=== PATIENT | male | born 1970 | race Caucasian/White ===

== ENCOUNTER 2016-09-17 09:42 | Emergency (ER) | payer OTHER ==
[~2016-09-17] VITALS: Ht 185.4 cm; Wt 105.2 kg
[2016-09-17 10:25] LABS: ABSOLUTE BASOPHIL COUNT 0 /CUMM (0.0-0.2); ABSOLUTE EOSINOPHIL COUNT 0.1 /CUMM (0.0-0.7); ABSOLUTE GRANULOCYTE CT 3.3 /CUMM (1.4-6.5); ABSOLUTE MONOCYTE COUNT 0.3 /CUMM (0.10-0.60); BASOPHIL % 0.3 % (0.0-2.0); EOSINOPHIL % 1.4 % (0-5); HEMATOCRIT 43.8 % (42-52); MEAN CORPUSCULAR HGB 28.8 PG (27.0-31.0); MEAN CORPUSCULAR HGB CONC 34.4 G/DL (33.0-37.0); MEAN CORPUSCULAR VOLUME 83.6 FL (80.0-94.0); MEAN PLATELET VOLUME 8.6 FL (7.4-10.4); PLATELET COUNT 278 /CUMM (130-400); RBC DISTRIBUTION WIDTH 12.6 % (11.5-14.5); RED BLOOD CELL CT 5.24 /CUMM (4.70-6.10); WHITE BLOOD CELL COUNT 4.8 /CUMM (4.8-10.8)
--- NOTE | 2016-09-17 10:53 | ED CARDIAC/CP/PALPITATIONS ---
History of Present Illness General Chief Complaint: Chest Pain Stated Complaint: CHEST PAIN Source: patient Exam Limitations: no limitations Vital Signs & Intake/Output Vital Signs & Intake/Output ED Intake and Output 09/18 0000 09/17 1200 Intake Total Output Total Balance Patient 232 lb Weight Allergies Coded Allergies: No Known Drug Allergies (09/17/16) Uncoded Allergies: SEASONAL (12/18/12) Reconcile Medications No Known Home Medications Triage Note: C/O DULL CHEST PAIN X 2 DAYS WITH R SIDED FACIAL AND ARM NUMBNESS, SOB AND BLURRED VISION IN R EYE. SAW PMD DR. JUÁREZ LAST WEEK, HAS ECHCARDIOGRAM SCHEUDLED TODAY AT DR. VELAZCO'S OFFICE. EKG DONE ON ARRIVAL. Triage Nurses Notes Reviewed? yes Onset: Gradual Duration: week(s): (1) Timing: multiple episodes today Quality/Severity: mild Location: under left nipple Radiation: no radiation Activities at Onset: none HPI: 45 year old male with history of valvular disorder presents to [facility] ER with on/ off chest pain for the past week. Pain is burning in nature just under left nipple, no radiation of the pain. No exacerbating or relieving factors. In July he was evaluated by an urgent care for similar symptoms. Today he also complains of change in sensation to the right side of his face and his right arm. No headache. Questionable change in vision in right eye. No loss of strength. No difficulty with speech, swallowing, walking or comprehension. Denies any radiating or neck pain. Today he is due to have his repeat echocardiogram at Dr. Velazco's office at 3:30 pm. Past History Travel History Traveled to [place] past 21 day No Medical History Any Pertinent Medical History? see below for history Cardiovascular: murmur and valve prolapse Surgical History Surgical History: non-contributory Psychosocial History What is your primary language Ukrainian Tobacco Use: Never used ETOH Use: denies use Family History Hx Contributory? No Review of Systems Review of Systems Constitutional: Denies: chills, fever. EENTM: Reports: visual changes. Denies: blurred vision, double vision, eye pain, ear discharge, ear redness. Respiratory: Denies: cough, short of breath, sputum production. Cardiovascular: Reports: edema. Denies: palpitations, peripheral edema, syncope. GI: Denies: abdominal pain. Genitourinary: Reports: no symptoms. Musculoskeletal: Denies: back pain. Skin: Reports: no symptoms. Neurological/Psychological: Reports: numbness. Denies: ataxia, headache. Hematologic/Endocrine: Denies: bruising, bleeding. Immunologic/Allergic: Denies: splenectomy. All Other Systems: Reviewed and Negative Physical Exam Physical Exam General Appearance: well developed/nourished, alert, awake Head: atraumatic, normal appearance Eyes: Bilateral: normal appearance, PERRL, EOMI. Ears, Nose, Throat: normal pharynx, normal ENT inspection, hearing grossly normal Neck: normal inspection, supple, full range of motion Respiratory: normal breath sounds, chest non-tender, no respiratory distress Cardiovascular: regular rate/rhythm, systolic murmur Peripheral Pulses: 2+ radial (R), 2+ radial (L) Gastrointestinal: normal bowel sounds, soft, non-tender Back: normal inspection, normal range of motion Extremities: normal inspection, normal capillary refill, normal range of motion, no edema Neurologic/Psych: no motor/sensory deficits, awake, alert, oriented x 3 Skin: intact, normal color, warm/dry Core Measures ACS in differential dx? Yes ASA ordered for poss ACS? No-ACS ruled out Severe Sepsis Present: No Septic Shock Present: No Progress Differential Diagnosis: AMI, aortic dissection, musculoskeletal pain, myocarditis, pericarditis, pneumonia, pneumothorax, pulmonary embolism, PUD/GERD , unstable angina, CVA/TIA, SEIZURE Plan of Care: Orders Procedure Date/time Status TROPONIN LEVEL 09/17 1002 Complete MAGNESIUM 09/17 1002 Complete COMPREHENSIVE METABOLIC PANEL 09/17 1002 Complete CBC WITHOUT DIFFERENTIAL 09/17 1002 Complete EKG 09/17 0944 Active Laboratory Tests 09/17/16 1004: Anion Gap 10, Estimated GFR > 60, BUN/Creatinine Ratio 15.0, Glucose 95, Calcium 9.3, Magnesium 1.9, Total Bilirubin 0.8, AST 24, ALT 44, Alkaline Phosphatase 70 , Troponin I < 0.01, Total Protein 6.7, Albumin 4.1, Globulin 2.6, Albumin/ Globulin Ratio 1.6, CBC w Diff NO MAN DIFF REQ, RBC 5.24, MCV 83.6, MCH 28.8, RDW 12.6, MPV 8.6, Gran % 70.0, Lymphocytes % 21.3, Monocytes % 7.0, Eosinophils % 1.4, Basophils % 0.3, Absolute Granulocytes 3.3, Absolute Lymphocytes 1.0 L, Absolute Monocytes 0.3, Absolute Eosinophils 0.1, Absolute Basophils 0, PUBS MCHC 34.4 09/17/2016 12:13:23 PM Case discussed with Dr. Brayan Parikh. He will follow up this afternoon for his echocardiogram. Imaging and blood tests are negative. Patient will discuss symptoms and concerns with the manager production's afternoon. (CASSI COATES,DAVID) Diagnostic Imaging: Viewed by Me: CT Scan. Discussed w/RAD: CT Scan. Radiology Impression: PATIENT: SERVANDO VERGARA PRESENT AGE: 45 PATIENT ACCOUNT NO: [id number] : 71 LOCATION: [facility] ORDERING PHYSICIAN: DAVID YE MD SERVICE DATE: 09/17/16 EXAM TYPE: CAT - CT HEAD WO IV CONTRAST EXAMINATION: CT HEAD WITHOUT CONTRAST CLINICAL INFORMATION: Right-sided facial and arm numbness. Blurred vision. COMPARISON: None TECHNIQUE: Contiguous axial imaging was performed from the skull base to vertex without intravenous administration of contrast. DLP: 601 mGy-cm FINDINGS: There is no evidence of acute intracranial hemorrhage or territorial infarction. No abnormal mass effect or midline shift is seen. Jose to white matter differentiation is well preserved. No extra-axial fluid collections are identified. The ventricles are normal in size. There is no abnormal attenuation within the brain parenchyma. No acute osseous abnormalities. The mastoid air cells and middle ear cavities are clear. The left temporomandibular joint is normal. The right condylar head is patulous and deformed, compatible with the sequela of remote injury. There is a small retention cysts in the anterior left sphenoid air cell and mild mucosal thickening in the anterior right sphenoid air cell. No acute soft tissue abnormalities. The visualized orbits appear unremarkable. IMPRESSION: No acute intracranial pathology. DICTATED BY: DARRION PATEL MD DATE/TIME DICTATED:09/17/161143 TREATMENT COUNSELOR:BENJA DATE/TIME TRANSCRIBED:09/17/161143 CONFIDENTIAL, DO NOT COPY WITHOUT APPROPRIATE AUTHORIZATION. <Electronically signed in Other Vendor System> SIGNED BY: DARRION PATEL MD 09/17/16 1150 Initial ED EKG: NSR Departure Departure Time of Disposition: 1213 Disposition: HOME OR SELF CARE Condition: Stable Clinical Impression Primary Impression: Chest pain at rest Referrals: DEBBIE COATES,BRAYAN JUÁREZ MD,GERHARD Mchugh (PCP/Family) Additional Instructions: Go to your appointment this afternoon for your echocardiogram and follow-up with a manager production in the office. Return to the ER for any changing or worsening symptoms. Departure Forms: Customer Survey General Discharge Information Prescriptions: Current Visit Scripts No Known Home Medications Critical Care Note Critical Care Note Critical Care Time: non-applicable
--- NOTE | 2016-09-17 11:50 | CT SCAN REPORT ---
EXAMINATION: CT HEAD WITHOUT CONTRAST CLINICAL INFORMATION: Right-sided facial and arm numbness. Blurred vision. COMPARISON: None TECHNIQUE: Contiguous axial imaging was performed from the skull base to vertex without intravenous administration of contrast. DLP: 601 mGy-cm FINDINGS: There is no evidence of acute intracranial hemorrhage or territorial infarction. No abnormal mass effect or midline shift is seen. Jose to white matter differentiation is well preserved. No extra-axial fluid collections are identified. The ventricles are normal in size. There is no abnormal attenuation within the brain parenchyma. No acute osseous abnormalities. The mastoid air cells and middle ear cavities are clear. The left temporomandibular joint is normal. The right condylar head is patulous and deformed, compatible with the sequela of remote injury. There is a small retention cysts in the anterior left sphenoid air cell and mild mucosal thickening in the anterior right sphenoid air cell. No acute soft tissue abnormalities. The visualized orbits appear unremarkable. IMPRESSION: No acute intracranial pathology.
[2016-09-17 11:53] VITALS: BP 143/86
== END 2016-09-17 12:19 ==
LOC: ERH 09:42
PROVIDERS: Emergency Medicine
DX: R07.9 Chest pain, unspecified (principal)
CPT/HCPCS: 93005; 93010